=== PATIENT | female | born 1970 | race African-American/Black ===

== ENCOUNTER 2019-10-21 19:06 | Inpatient (IN) ==
[2019-10-21] MEDS ORDERED: ASPIRIN CHEW 81 MG TABLET PO STA (19:28)
[2019-10-21] MEDS ORDERED: SODIUM CHLORIDE 0.9% 1,000 ML IV STA (19:35)
[2019-10-21 19:42] LABS: Basophils % 0.7 % (0.0-0.8); Eosinophils # 0.1 10*3/uL (0.0-0.87); Eosinophils % 1.5 % (0.00-10.9); Hematocrit 43.6 VOL% (35.7-47.0); Hemoglobin 13.7 GM/DL (12.0-16.0); Immature Granulocytes % 0.2 %; Immature Granulocytes Absolute 0.01 #; Lymphocytes # 1.9 10*3/uL (1.4-4.0); Lymphocytes % 35.2 % (21.3-54.2); Mean Corpuscular HGB Conc 31.4 GM/DL (32-36); Mean Corpuscular Volume 79.1 FL (87-102); Monocytes % 10.9 % (1.7-12.7); Neutrophils % 51.5 % (38.7-73.9); Platelet Count 268 T/CUMM (130-400); Red Blood Count 5.51 MC/CUMM (3.8-5.5); Red Cell Distribution Width 16.3 % (9.3-17.3); White Blood Count 5.5 T/CUMM (4-12)
[2019-10-21 20:08] LABS: Albumin 3.7 G/DL (3.4-5.0); Bilirubin,Total 0.4 MG/DL (0.2-1.0); Calcium 9.6 MG/DL (8.5-10.1); Osmolality,Calculated 284.3 MOS/KG (273-304); Thyroid Stimulating Hormone 2.07 uIU/ml (0.358-3.74); Total Protein 8.2 G/DL (6.4-8.3)
[2019-10-21 20:09] LABS: INR 2.1; PT Patient Result 21.3 SECS (9.8-11.9); Partial Thromboplastin Time 56.6 SECS (23.9-33.8)
[2019-10-21] MEDS ORDERED: NICOTINE 21 MG/24 HR PATCH TRANSDERM PRN (20:50)
[2019-10-21] MEDS ORDERED: hydrALAZINE 20 MG/1 ML VIAL IV PRN (20:50)
[2019-10-21] MEDS ORDERED: ONDANSETRON 4 MG/2 ML VIAL IV PRN (20:50)
[2019-10-21] MEDS ORDERED: GLUCAGON 1 MG VIAL IM PRN (20:50)
[2019-10-21] MEDS ORDERED: ACETAMINOPHEN 325 MG TABLET PO PRN (20:50)
[2019-10-21] MEDS ORDERED: DEXTROSE 50% 25 GM/50 ML VIAL IV PRN (20:50)
[2019-10-21] MEDS ORDERED: diphenhydrAMINE CAP 25 MG CAPSULE PO PRN (20:50)
[2019-10-21] MEDS: HEPARIN DRIP 25,000 UNITS/500 ML PREMIX IV SCH (20:50)
[2019-10-21] MEDS ORDERED: ZALEPLON 5 MG CAPSULE PO PRN (20:50)
[2019-10-21] MEDS ORDERED: guaiFENesin/DM ER 600-30 MG TABLET PO PRN (20:50)
[2019-10-21] MEDS: carvediloL 6.25 MG TABLET PO SCH (23:11)
[2019-10-21] MEDS: DOCUSATE SODIUM 100 MG CAPSULE PO SCH (23:11)
[2019-10-21] MEDS: MORPHINE 4 MG/1 ML VIAL IV PRN (23:30)
[2019-10-22] MEDS: MORPHINE 4 MG/1 ML VIAL IV PRN ×4 (02:30→19:00)
[2019-10-22 05:05] LABS: Basophils # 0.1 10*3/uL (0.0-0.2); Basophils % 0.8 % (0.0-0.8); Eosinophils # 0.2 10*3/uL (0.0-0.87); Eosinophils % 2.4 % (0.00-10.9); Hematocrit 43.3 VOL% (35.7-47.0); Hemoglobin 13.2 GM/DL (12.0-16.0); Immature Granulocytes % 0.3 %; Immature Granulocytes Absolute 0.02 #; Lymphocytes # 3.2 10*3/uL (1.4-4.0); Mean Corpuscular HGB Conc 30.5 GM/DL (32-36); Mean Corpuscular Volume 80.9 FL (87-102); Monocytes % 12.4 % (1.7-12.7); Neutrophils % 33.1 % (38.7-73.9); Red Blood Count 5.35 MC/CUMM (3.8-5.5); Red Cell Distribution Width 16.3 % (9.3-17.3); White Blood Count 6.3 T/CUMM (4-12)
[2019-10-22 05:13] LABS: Platelet Count 180 T/CUMM (130-400)
[2019-10-22 05:16] LABS: Calcium 9.1 MG/DL (8.5-10.1); Osmolality,Calculated 282.4 MOS/KG (273-304)
[2019-10-22 05:31] LABS: Atypical Lymphocytes Few; Band Neutrophils 1 % (0-10); Eosinophils 3 % (0-10); Hypochromasia 1+; Lymphocytes 49 % (20-55); Microcytosis 1+; Segmented Neutrophils 37 % (50-85); Total Cells Counted 100
[2019-10-22] MEDS ORDERED: TICAGRELOR 90 MG TABLET PO ONE ×2 (06:30→09:00)
[2019-10-22 06:52] LABS: INR 2.1; PT Patient Result 22.1 SECS (9.8-11.9)
[2019-10-22 06:57] LABS: Partial Thromboplastin Time > 211.8 SECS (23.9-33.8)
[2019-10-22] MEDS: DOCUSATE SODIUM 100 MG CAPSULE PO SCH ×2 (10:01→20:25)
[2019-10-22] MEDS: ASPIRIN EC 81 MG TABLET PO SCH (10:01)
[2019-10-22] MEDS: SPIRONOLACTONE 50 MG TABLET PO SCH (10:01)
[2019-10-22] MEDS: METOPROLOL TARTRATE 50 MG TABLET PO SCH ×2 (10:02→20:27)
[2019-10-22] MEDS: GABAPENTIN 300 MG CAPSULE PO SCH ×3 (10:02→20:24)
[2019-10-22] MEDS: PANTOPRAZOLE 40 MG TABLET PO SCH (10:02)
[2019-10-22] MEDS: carvediloL 6.25 MG TABLET PO SCH (10:08)
[2019-10-22 11:36] LABS: CKMB % 10.9 %
[2019-10-22 11:38] LABS: Troponin I 12.5 NG/ML (0.00-0.045)
[2019-10-22] MEDS: NITROGLYCERIN SL 0.4 MG TABLET SL PRN ×4 (11:52→19:06)
[2019-10-22] MEDS ORDERED: KETOROLAC 15 MG/1 ML VIAL IV ONE (12:05)
[2019-10-22] MEDS: HEPARIN DRIP 25,000 UNITS/500 ML PREMIX IV SCH ×2 (12:26→21:15)
[2019-10-22] MEDS: NITROGLYCERIN 2% OINT 1 INCH/GM PACK TOP SCH ×2 (12:42→17:55)
[2019-10-22] MEDS: amLODIPine 5 MG TABLET PO SCH (12:45)
[2019-10-22] MEDS: cloNIDine 0.1 MG TABLET PO PRN ×2 (13:48→18:13)
[2019-10-22 15:16] LABS: CKMB % 10.7 %; Troponin I 11.5 NG/ML (0.00-0.045)
[2019-10-22] MEDS ORDERED: HEPARIN/NACL 0.9% 2 UNITS/ML 1,000 ML IV ONE (15:16)
[2019-10-22] MEDS ORDERED: LIDOCAINE 1%/EPI INJ 20 ML VIAL ONE (15:16)
[2019-10-22] MEDS ORDERED: MIDAZOLAM 2 MG/2 ML VIAL ONE (15:21)
[2019-10-22] MEDS ORDERED: fentaNYL 100 MCG/2 ML VIAL ONE (15:21)
[2019-10-22] MEDS ORDERED: ceFAZolin 1,000 MG VIAL ONE (16:16)
[2019-10-22] MEDS ORDERED: cloNIDine 0.1 MG TABLET ONE (16:16)
[2019-10-22] MEDS ORDERED: fentaNYL 100 MCG/2 ML VIAL IV PRN (16:22)
[2019-10-22] MEDS ORDERED: SODIUM CHLORIDE 0.45% 1,000 ML IV SCH (16:30)
[2019-10-22] MEDS: hydrOXYzine HCL 25 MG TABLET PO SCH ×2 (17:02→20:23)
[2019-10-22] MEDS: DICYCLOMINE 10 MG CAPSULE PO SCH ×2 (17:02→20:24)
[2019-10-22] MEDS: CYCLOBENZAPRINE 10 MG TABLET PO SCH ×2 (17:02→20:23)
[2019-10-22 17:30] LABS: CKMB % 9.6 %; Troponin I 9.06 NG/ML (0.00-0.045)
[2019-10-22] MEDS: TICAGRELOR 90 MG TABLET PO SCH ×2 (17:50→20:24)
[2019-10-22] MEDS ORDERED: ALUM/MAG/SIMETH/LIDO VISC 1:1 30 ML BOTTLE PO ONE (19:39)
[2019-10-22] MEDS: ATORVASTATIN 20 MG TABLET PO SCH (20:23)
[2019-10-22] MEDS: HYDROmorphone 2 MG/1 ML VIAL IV PRN (20:27)
[2019-10-23] MEDS ORDERED: ACETAMINOPHEN 500 MG TABLET PO SCH
[2019-10-23] MEDS: NITROGLYCERIN 2% OINT 1 INCH/GM PACK TOP SCH ×2 (00:05→06:18)
[2019-10-23] MEDS: ACETAMINOPHEN 500 MG TABLET PO PRN ×2 (00:05→06:18)
[2019-10-23] MEDS: MORPHINE 4 MG/1 ML VIAL IV PRN (02:42)
[2019-10-23] MEDS: cloNIDine 0.1 MG TABLET PO PRN (04:45)
[2019-10-23 05:07] LABS: Calcium 9.1 MG/DL (8.5-10.1); Osmolality,Calculated 274.8 MOS/KG (273-304)
[2019-10-23 06:39] LABS: Basophils % 0.3 % (0.0-0.8); Eosinophils % 0.6 % (0.00-10.9); Hematocrit 44.1 VOL% (35.7-47.0); Immature Granulocytes % 0.3 %; Immature Granulocytes Absolute 0.02 #; Lymphocytes # 1.2 10*3/uL (1.4-4.0); Lymphocytes % 16.7 % (21.3-54.2); Mean Corpuscular HGB Conc 31.7 GM/DL (32-36); Mean Corpuscular Volume 78.6 FL (87-102); Monocytes % 12.3 % (1.7-12.7); Neutrophils % 69.8 % (38.7-73.9); Platelet Count 170 T/CUMM (130-400); Red Blood Count 5.61 MC/CUMM (3.8-5.5); Red Cell Distribution Width 16.3 % (9.3-17.3)
[2019-10-23] MEDS: GABAPENTIN 300 MG CAPSULE PO SCH ×3 (08:43→21:13)
[2019-10-23] MEDS: MONTELUKAST 10 MG TABLET PO SCH (08:43)
[2019-10-23] MEDS: SPIRONOLACTONE 50 MG TABLET PO SCH (08:43)
[2019-10-23] MEDS: PANTOPRAZOLE 40 MG TABLET PO SCH (08:43)
[2019-10-23] MEDS: predniSONE 10 MG TABLET PO SCH (08:43)
[2019-10-23] MEDS: amLODIPine 5 MG TABLET PO SCH (08:43)
[2019-10-23] MEDS: CYCLOBENZAPRINE 10 MG TABLET PO SCH ×3 (08:43→21:14)
[2019-10-23] MEDS: CETIRIZINE 10 MG TABLET PO SCH (08:43)
[2019-10-23] MEDS: ASPIRIN EC 81 MG TABLET PO SCH (08:43)
[2019-10-23] MEDS: VENLAFAXINE XR 75 MG CAPSULE PO SCH (08:44)
[2019-10-23] MEDS: hydrOXYzine HCL 25 MG TABLET PO SCH ×3 (08:44→21:13)
[2019-10-23] MEDS: METOPROLOL TARTRATE 50 MG TABLET PO SCH ×2 (08:44→21:21)
[2019-10-23] MEDS: TOPIRAMATE 100 MG TABLET PO SCH (08:44)
[2019-10-23] MEDS: DOCUSATE SODIUM 100 MG CAPSULE PO SCH ×2 (08:44→21:13)
[2019-10-23] MEDS: TICAGRELOR 90 MG TABLET PO SCH ×2 (08:44→21:13)
[2019-10-23] MEDS: DICYCLOMINE 10 MG CAPSULE PO SCH ×3 (08:47→21:13)
[2019-10-23] MEDS ORDERED: DOCUSATE SODIUM 100 MG CAPSULE PO SCH (09:00)
[2019-10-23] MEDS ORDERED: PANTOPRAZOLE 40 MG TABLET PO SCH (09:00)
[2019-10-23] MEDS: FLUTICASONE 50 MCG NASAL SPRAY 16 GM BOTTLE BOTH NARES SCH (09:35)
[2019-10-23] MEDS: PROMETHAZINE 25 MG TABLET PO PRN ×2 (11:05→17:36)
[2019-10-23] MEDS: HYDROmorphone 2 MG/1 ML VIAL IV PRN (13:13)
[2019-10-23] MEDS: HEPARIN DRIP 25,000 UNITS/500 ML PREMIX IV SCH ×2 (15:13→21:12)
[2019-10-23] MEDS: ATORVASTATIN 20 MG TABLET PO SCH (21:13)
[2019-10-24] MEDS: HYDROmorphone 2 MG/1 ML VIAL IV PRN ×2 (00:07→21:00)
[2019-10-24 08:03] LABS: Basophils % 0.4 % (0.0-0.8); Eosinophils # 0.1 10*3/uL (0.0-0.87); Eosinophils % 1.3 % (0.00-10.9); Hematocrit 44.1 VOL% (35.7-47.0); Immature Granulocytes % 0.4 %; Immature Granulocytes Absolute 0.03 #; Lymphocytes % 29.4 % (21.3-54.2); Mean Corpuscular HGB Conc 31.7 GM/DL (32-36); Mean Corpuscular Volume 79.3 FL (87-102); Monocytes % 10.3 % (1.7-12.7); Neutrophils % 58.2 % (38.7-73.9); Platelet Count 177 T/CUMM (130-400); Red Blood Count 5.56 MC/CUMM (3.8-5.5); Red Cell Distribution Width 16.3 % (9.3-17.3); White Blood Count 6.9 T/CUMM (4-12)
[2019-10-24 08:12] LABS: Albumin 3.3 G/DL (3.4-5.0); Bilirubin,Total 0.4 MG/DL (0.2-1.0); Calcium 9.4 MG/DL (8.5-10.1); Osmolality,Calculated 280.5 MOS/KG (273-304); Total Protein 8.3 G/DL (6.4-8.3)
[2019-10-24 08:40] LABS: Hypochromasia Slight; Platelet Estimate Adequate
[2019-10-24 08:41] LABS: Microcytosis Slight
[2019-10-24] MEDS: VENLAFAXINE XR 75 MG CAPSULE PO SCH (09:22)
[2019-10-24] MEDS: GABAPENTIN 300 MG CAPSULE PO SCH ×3 (09:22→20:57)
[2019-10-24] MEDS: CETIRIZINE 10 MG TABLET PO SCH (09:23)
[2019-10-24] MEDS: DOCUSATE SODIUM 100 MG CAPSULE PO SCH ×2 (09:23→20:59)
[2019-10-24] MEDS: amLODIPine 5 MG TABLET PO SCH (09:23)
[2019-10-24] MEDS: hydrOXYzine HCL 25 MG TABLET PO SCH ×3 (09:24→20:59)
[2019-10-24] MEDS: METOPROLOL TARTRATE 50 MG TABLET PO SCH ×2 (09:24→21:01)
[2019-10-24] MEDS: predniSONE 10 MG TABLET PO SCH (09:24)
[2019-10-24] MEDS: SPIRONOLACTONE 50 MG TABLET PO SCH (09:24)
[2019-10-24] MEDS: MONTELUKAST 10 MG TABLET PO SCH (09:24)
[2019-10-24] MEDS: ASPIRIN EC 81 MG TABLET PO SCH (09:24)
[2019-10-24] MEDS: DICYCLOMINE 10 MG CAPSULE PO SCH ×3 (09:24→20:59)
[2019-10-24] MEDS: CYCLOBENZAPRINE 10 MG TABLET PO SCH ×3 (09:24→20:59)
[2019-10-24] MEDS: TOPIRAMATE 100 MG TABLET PO SCH (09:24)
[2019-10-24] MEDS: TICAGRELOR 90 MG TABLET PO SCH ×2 (09:24→20:58)
[2019-10-24] MEDS: FLUTICASONE 50 MCG NASAL SPRAY 16 GM BOTTLE BOTH NARES SCH (09:25)
[2019-10-24] MEDS: PANTOPRAZOLE 40 MG TABLET PO SCH (09:25)
[2019-10-24] MEDS: HEPARIN DRIP 25,000 UNITS/500 ML PREMIX IV SCH (14:25)
[2019-10-24 17:05] LABS: INR 1.1; PT Patient Result 11.9 SECS (9.8-11.9)
[2019-10-24] MEDS ORDERED: WARFARIN 5 MG TABLET PO SCH (18:00)
[2019-10-24] MEDS: ATORVASTATIN 20 MG TABLET PO SCH (20:59)
[2019-10-25] MEDS: HEPARIN DRIP 25,000 UNITS/500 ML PREMIX IV SCH (00:26)
[2019-10-25] MEDS: MORPHINE 4 MG/1 ML VIAL IV PRN (03:24)
[2019-10-25 06:06] LABS: Basophils % 0.5 % (0.0-0.8); Eosinophils # 0.1 10*3/uL (0.0-0.87); Eosinophils % 1.6 % (0.00-10.9); Hematocrit 46.8 VOL% (35.7-47.0); Hemoglobin 14.8 GM/DL (12.0-16.0); Immature Granulocytes % 0.4 %; Immature Granulocytes Absolute 0.03 #; Lymphocytes # 3.1 10*3/uL (1.4-4.0); Lymphocytes % 39.2 % (21.3-54.2); Mean Corpuscular HGB Conc 31.6 GM/DL (32-36); Mean Corpuscular Volume 78.7 FL (87-102); Neutrophils % 48.3 % (38.7-73.9); Platelet Count 190 T/CUMM (130-400); Red Blood Count 5.95 MC/CUMM (3.8-5.5); White Blood Count 7.9 T/CUMM (4-12)
[2019-10-25 06:19] LABS: PT Patient Result 10.7 SECS (9.8-11.9)
[2019-10-25 06:20] LABS: Calcium 9.4 MG/DL (8.5-10.1); Osmolality,Calculated 276.8 MOS/KG (273-304)
[2019-10-25 06:26] LABS: Hypochromasia Slight; Platelet Estimate Adequate
[2019-10-25 06:27] LABS: Microcytosis Slight
[2019-10-25] MEDS: VENLAFAXINE XR 75 MG CAPSULE PO SCH (09:03)
[2019-10-25] MEDS: PANTOPRAZOLE 40 MG TABLET PO SCH (09:03)
[2019-10-25] MEDS: TICAGRELOR 90 MG TABLET PO SCH (09:03)
[2019-10-25] MEDS: amLODIPine 5 MG TABLET PO SCH (09:03)
[2019-10-25] MEDS: DICYCLOMINE 10 MG CAPSULE PO SCH ×2 (09:03→14:31)
[2019-10-25] MEDS: DOCUSATE SODIUM 100 MG CAPSULE PO SCH (09:04)
[2019-10-25] MEDS: hydrOXYzine HCL 25 MG TABLET PO SCH ×2 (09:04→14:31)
[2019-10-25] MEDS: TOPIRAMATE 100 MG TABLET PO SCH (09:04)
[2019-10-25] MEDS: predniSONE 10 MG TABLET PO SCH (09:04)
[2019-10-25] MEDS: CETIRIZINE 10 MG TABLET PO SCH (09:04)
[2019-10-25] MEDS: METOPROLOL TARTRATE 50 MG TABLET PO SCH (09:04)
[2019-10-25] MEDS: GABAPENTIN 300 MG CAPSULE PO SCH ×2 (09:05→14:31)
[2019-10-25] MEDS: FLUTICASONE 50 MCG NASAL SPRAY 16 GM BOTTLE BOTH NARES SCH (09:05)
[2019-10-25] MEDS: CYCLOBENZAPRINE 10 MG TABLET PO SCH ×2 (09:05→14:31)
[2019-10-25] MEDS: MONTELUKAST 10 MG TABLET PO SCH (09:05)
[2019-10-25] MEDS: ASPIRIN EC 81 MG TABLET PO SCH (09:06)
[2019-10-25 11:34] VITALS: BP 107/73
== END 2019-10-25 15:07 | disposition home or self-care (01) | DRG 281 ==
LOC: N.ED 19:06 → SUATTDRO 20:50 → N.EDINP 20:50 → N.TELES 21:16 → N.ICU 10-22 16:24 → N.TELEN 10-23 11:10
PROVIDERS: ADMIT Internal Medicine Geriatric Medicine; ATTEND Internal Medicine
PROC: CLCCHCL (ICD-10-PCS; 2019-10-22 16:00)

== ENCOUNTER 2020-07-21 04:47 | Observation (INO) ==
[2020-07-21 05:06] LABS: Basophils # 0.1 10*3/uL (0.0-0.2); Basophils % 0.7 % (0.0-0.8); Eosinophils # 0.1 10*3/uL (0.0-0.87); Eosinophils % 1.2 % (0.00-10.9); Hematocrit 44.9 VOL% (35.7-47.0); Hemoglobin 13.8 GM/DL (12.0-16.0); Immature Granulocytes % 0.4 %; Immature Granulocytes Absolute 0.03 #; Lymphocytes # 3.4 10*3/uL (1.4-4.0); Lymphocytes % 39.6 % (21.3-54.2); Mean Corpuscular HGB Conc 30.7 GM/DL (32-36); Monocytes % 11.4 % (1.7-12.7); Neutrophils % 46.7 % (38.7-73.9); Platelet Count 150 T/CUMM (130-400); Red Blood Count 5.54 MC/CUMM (3.8-5.5); Red Cell Distribution Width 18.4 % (9.3-17.3); White Blood Count 8.5 T/CUMM (4-12)
[2020-07-21 05:15] LABS: PT Patient Result 10.9 SECS (10.5-12.0); Partial Thromboplastin Time 29.7 SECS (23.9-33.8)
[2020-07-21 05:27] LABS: Anisocytosis 1+; Band Neutrophils 3 % (0-10); Eosinophils 4 % (0-10); Lymphocytes 38 % (20-55); Ovalocytes Few; Platelet Estimate Normal; Segmented Neutrophils 45 % (50-85); Total Cells Counted 100
[2020-07-21 05:41] LABS: Calcium 9.3 MG/DL (8.5-10.1); Potassium 4.9 MMOL/L (3.5-5.1)
[2020-07-21] MEDS ORDERED: NITROGLYCERIN SL 0.4 MG TABLET SL PRN (06:39)
[2020-07-21 06:46] LABS: Bilirubin,Urine Negative (Negative); Blood, Urine Negative (Negative); Glucose,Urine (UA) Negative (Negative); Ketones,Urine Negative (Negative); Nitrite,Urine Negative (Negative); Protein,Urine Negative; RBC,Urine 3 /HPF (0-4); Squamous Epithelial Cell,Urine Occasional /HPF (0-10); Urine Appearance CLEAR (Clear); Urine Color Yellow (Yellow); Urine Specific Gravity 1.017 (1.001-1.035)
[2020-07-21] MEDS ORDERED: ONDANSETRON 4 MG/2 ML VIAL IV PRN (06:59)
[2020-07-21] MEDS ORDERED: BISACODYL 5 MG TABLET PO PRN (06:59)
[2020-07-21] MEDS ORDERED: DEXTROSE 50% 25 GM/50 ML VIAL IV PRN (06:59)
[2020-07-21] MEDS ORDERED: ACETAMINOPHEN 325 MG TABLET PO PRN (06:59)
[2020-07-21] MEDS ORDERED: GLUCAGON 1 MG VIAL IM PRN (06:59)
[2020-07-21] MEDS ORDERED: ENOXAPARIN 30 MG/0.3 ML SYRINGE SUBCUT SCH (07:00)
[2020-07-21] MEDS ORDERED: CYCLOBENZAPRINE 10 MG TABLET PO PRN (07:02)
[2020-07-21] MEDS ORDERED: ALBUTEROL 2.5 MG/3 ML NEB RESP TX PRN (07:02)
[2020-07-21] MEDS ORDERED: LEVOTHYROXINE 25 MCG TABLET PO SCH (07:30)
[2020-07-21] MEDS ORDERED: PANTOPRAZOLE 40 MG TABLET PO SCH (09:00)
[2020-07-21] MEDS ORDERED: ATORVASTATIN 20 MG TABLET PO SCH (09:00)
[2020-07-21] MEDS ORDERED: FLUTICASONE 50 MCG NASAL SPRAY 16 GM BOTTLE BOTH NARES SCH (09:00)
[2020-07-21] MEDS ORDERED: VENLAFAXINE XR 75 MG CAPSULE PO SCH (09:00)
[2020-07-21] MEDS ORDERED: ASPIRIN EC 325 MG TABLET PO SCH (09:00)
[2020-07-21] MEDS ORDERED: METOPROLOL TARTRATE 25 MG TABLET PO SCH (09:00)
[2020-07-21] MEDS ORDERED: MONTELUKAST 10 MG TABLET PO SCH (09:00)
[2020-07-21] MEDS: APIXABAN 5 MG TABLET PO SCH ×2 (09:08→20:47)
[2020-07-21] MEDS: GABAPENTIN 300 MG CAPSULE PO SCH ×3 (09:08→20:46)
[2020-07-21] MEDS: INSULIN LISPRO 100 UNIT/ML SUBCUT SCH ×4 (09:13→20:46)
[2020-07-21] MEDS: MORPHINE 4 MG/1 ML VIAL IV PRN ×2 (10:55→20:47)
[2020-07-21 16:21] LABS: Barbiturates Screen,Urine Negative (Negative); Benzodiazepines Screen,Urine Negative (Negative); Cannabinoid Screen,Urine Negative (Negative); Opiate Screen,Urine Positive (Negative); Phencyclidine Screen,Urine Negative (Negative)
[2020-07-21 20:10] VITALS: BP 121/79
[2020-07-21] MEDS ORDERED: hydrOXYzine HCL 25 MG TABLET PO SCH (21:00)
== END 2020-07-21 20:56 | disposition hospice, home (50) ==
LOC: EDUNIT# → EDBD → N.ED 04:47 → N.EDINP 04:47 → SUATTDRO 06:59 → N.EDINP 07:42 → N.TELES 08:15
PROVIDERS: ADMIT Hospitalist; ATTEND Internal Medicine

== ENCOUNTER 2021-10-06 06:49 | Inpatient (IN) ==
[2021-10-06 07:18] LABS: Basophils # 0.1 10*3/uL (0.0-0.2); Basophils % 0.4 % (0.0-0.8); Eosinophils % 0.1 % (0.00-10.9); Hematocrit 47.2 VOL% (35.7-47.0); Hemoglobin 14.8 GM/DL (12.0-16.0); Immature Granulocytes % 0.8 %; Lymphocytes # 1.4 10*3/uL (1.4-4.0); Lymphocytes % 10.6 % (21.3-54.2); Mean Corpuscular HGB Conc 31.4 GM/DL (32-36); Mean Corpuscular Volume 71.8 FL (87-102); Monocytes % 7.9 % (1.7-12.7); NRBC # 0.02 10*3/uL; Neutrophils % 80.2 % (38.7-73.9); Platelet Count 209 T/CUMM (130-400); Red Blood Count 6.57 MC/CUMM (3.8-5.5); Red Cell Distribution Width 22.3 % (9.3-17.3); White Blood Count 13.2 T/CUMM (4-12)
[2021-10-06 07:43] LABS: Albumin 3.8 G/DL (3.4-5.0); Bilirubin,Total 1.1 MG/DL (0.20-1.00); Osmolality,Calculated 289.3 MOS/KG (273-304); Potassium 4.1 MMOL/L (3.5-5.1); Total Protein 7.8 G/DL (6.4-8.2)
[2021-10-06] MEDS ORDERED: NITROGLYCERIN SL 0.4 MG TABLET SL ONE (08:48)
[2021-10-06] MEDS ORDERED: MORPHINE 2 MG/1 ML SYRINGE IV STA (09:05)
[2021-10-06] MEDS ORDERED: ONDANSETRON 4 MG/2 ML VIAL IV STA (09:05)
[2021-10-06] MEDS ORDERED: ONDANSETRON 4 MG/2 ML VIAL ONE (09:06)
[2021-10-06] MEDS ORDERED: MORPHINE 2 MG/1 ML SYRINGE ONE (09:06)
[2021-10-06] MEDS ORDERED: NITROGLYCERIN SL 0.4 MG TABLET SL STA (09:27)
[2021-10-06] MEDS ORDERED: NITROGLYCERIN SL 0.4 MG TABLET SL PRN (10:34)
[2021-10-06] MEDS ORDERED: DEXTROSE 50% 25 GM/50 ML VIAL IV PRN (10:34)
[2021-10-06] MEDS ORDERED: GLUCAGON 1 MG VIAL IM PRN (10:34)
[2021-10-06] MEDS ORDERED: DEXTROSE 10% 250 ML BAG IV PRN (10:40)
[2021-10-06] MEDS: INSULIN REGULAR 100 UNIT/ML SUBCUT SCH ×3 (12:47→20:58)
[2021-10-06] MEDS: PREGABALIN 75 MG CAPSULE PO SCH ×2 (14:26→20:58)
[2021-10-06] MEDS ORDERED: METOPROLOL TARTRATE 5 MG/5 ML VIAL IV ONE (15:27)
[2021-10-06] MEDS: ONDANSETRON 4 MG/2 ML VIAL IV PRN (15:52)
[2021-10-06] MEDS: MORPHINE 2 MG/1 ML SYRINGE IV PRN (16:19)
[2021-10-06] MEDS ORDERED: DIGOXIN 0.125 MG TABLET PO ONE (17:31)
[2021-10-06] MEDS: METOPROLOL TARTRATE 5 MG/5 ML VIAL IV SCH (17:59)
[2021-10-06] MEDS: ATORVASTATIN 20 MG TABLET PO SCH (20:58)
[2021-10-06] MEDS: BUDESONIDE/FORMOTEROL 160-4.5 INHALER 6 GM INH SCH (20:58)
[2021-10-06] MEDS: RANOLAZINE 500 MG TABLET PO SCH (20:58)
[2021-10-06] MEDS: METOPROLOL SUCCINATE XL 50 MG TABLET PO SCH (20:58)
[2021-10-06] MEDS: APIXABAN 5 MG TABLET PO SCH (20:58)
[2021-10-06] MEDS: tiZANidine 4 MG TABLET PO SCH (20:59)
[2021-10-06] MEDS ORDERED: ENOXAPARIN 40 MG/0.4 ML SYRINGE SUBCUT SCH (21:00)
[2021-10-07] MEDS: METOPROLOL TARTRATE 5 MG/5 ML VIAL IV SCH ×4 (01:45→17:33)
[2021-10-07] MEDS: MORPHINE 2 MG/1 ML SYRINGE IV PRN (02:07)
[2021-10-07] MEDS: ONDANSETRON 4 MG/2 ML VIAL IV PRN (02:08)
[2021-10-07 04:34] LABS: Bacteria,Urine Many /HPF (Few); Mucus,Urine Few /LPF (Occasional); RBC,Urine 2379 /HPF (0-4); Squamous Epithelial Cell,Urine Moderate /HPF (0-10)
[2021-10-07 04:35] LABS: Bilirubin,Urine Small mg/dL (Negative); Blood, Urine Large mg/dL (Negative); Glucose,Urine (UA) 250 mg/dL (Negative); Ketones,Urine Trace mg/dL (Negative); Nitrite,Urine Positive (Negative); Protein,Urine >=300 mg/dL (Negative); Urine Appearance Turbid (Clear); Urine Color Brown (Yellow); Urine Specific Gravity > 1.030 (1.001-1.035); Urine Urobilinogen 0.2 eU/dL (<2.0)
[2021-10-07 04:48] LABS: Basophils % 0.2 % (0.0-0.8); Eosinophils # 0.1 10*3/uL (0.0-0.87); Eosinophils % 0.7 % (0.00-10.9); Hematocrit 46.4 VOL% (35.7-47.0); Hemoglobin 14.2 GM/DL (12.0-16.0); Immature Granulocytes % 0.5 %; Immature Granulocytes Absolute 0.06 #; Lymphocytes # 2.5 10*3/uL (1.4-4.0); Lymphocytes % 19.8 % (21.3-54.2); Mean Corpuscular HGB Conc 30.6 GM/DL (32-36); Mean Corpuscular Volume 73.1 FL (87-102); Monocytes # 1.8 10*3/uL (0.11-0.8); Monocytes % 14.3 % (1.7-12.7); Neutrophils % 64.5 % (38.7-73.9); Platelet Count 191 T/CUMM (130-400); Red Blood Count 6.35 MC/CUMM (3.8-5.5); Red Cell Distribution Width 22.2 % (9.3-17.3); White Blood Count 12.6 T/CUMM (4-12)
[2021-10-07 05:05] LABS: Band Neutrophils 6 % (0-10); Lymphocytes 21 % (20-55); Platelet Estimate Adequate; Total Cells Counted 100
[2021-10-07 05:21] LABS: Albumin 3.5 G/DL (3.4-5.0); Bilirubin,Total 1.2 MG/DL (0.20-1.00); Calcium 9.2 MG/DL (8.5-10.1); Osmolality,Calculated 285.4 MOS/KG (273-304); Potassium 3.9 MMOL/L (3.5-5.1); Risk Ratio 2.24; Total Protein 8.2 G/DL (6.4-8.2)
[2021-10-07] MEDS: LEVOTHYROXINE 75 MCG TABLET PO SCH (06:25)
[2021-10-07] MEDS: INSULIN REGULAR 100 UNIT/ML SUBCUT SCH ×4 (07:49→22:19)
[2021-10-07] MEDS: SODIUM CHLORIDE 0.9% 1,000 ML IV SCH (08:01)
[2021-10-07] MEDS: RANOLAZINE 500 MG TABLET PO SCH ×2 (09:32→20:57)
[2021-10-07] MEDS: APIXABAN 5 MG TABLET PO SCH ×2 (09:32→20:56)
[2021-10-07] MEDS: cefTRIAXone 1,000 MG in SODIUM CHLORIDE 0.9% 100 ML IV SCH (09:32)
[2021-10-07] MEDS: PREGABALIN 75 MG CAPSULE PO SCH ×3 (09:32→20:57)
[2021-10-07] MEDS: OMEGA 3 ACID ETHYL ESTERS 1 GM CAPSULE PO SCH (09:32)
[2021-10-07] MEDS: CLOPIDOGREL 75 MG TABLET PO SCH (09:32)
[2021-10-07] MEDS: DIGOXIN 0.125 MG TABLET PO SCH (09:32)
[2021-10-07] MEDS: PANTOPRAZOLE 40 MG TABLET PO SCH (09:32)
[2021-10-07] MEDS: amLODIPine 5 MG TABLET PO SCH (09:32)
[2021-10-07] MEDS: allopurinoL 100 MG TABLET PO SCH (09:33)
[2021-10-07] MEDS: BUDESONIDE/FORMOTEROL 160-4.5 INHALER 6 GM INH SCH ×2 (09:33→22:19)
[2021-10-07] MEDS: ASCORBIC ACID 500 MG TABLET PO SCH (09:33)
[2021-10-07] MEDS: METOPROLOL SUCCINATE XL 50 MG TABLET PO SCH ×2 (09:33→22:19)
[2021-10-07] MEDS: tiZANidine 4 MG TABLET PO SCH ×2 (09:33→20:57)
[2021-10-07] MEDS: CHOLECALCIFEROL 1,000 UNIT TABLET PO SCH (09:33)
[2021-10-07] MEDS: MONTELUKAST 10 MG TABLET PO SCH (09:33)
[2021-10-07] MEDS ORDERED: LOPERAMIDE 2 MG CAPSULE PO PRN (15:57)
[2021-10-07] MEDS ORDERED: LOPERAMIDE 2 MG CAPSULE PO ONE (15:57)
[2021-10-07] MEDS: ATORVASTATIN 20 MG TABLET PO SCH (20:56)
[2021-10-08] MEDS: METOPROLOL TARTRATE 5 MG/5 ML VIAL IV SCH ×2 (00:05→05:20)
[2021-10-08] MEDS: LEVOTHYROXINE 75 MCG TABLET PO SCH (05:54)
[2021-10-08] MEDS: INSULIN REGULAR 100 UNIT/ML SUBCUT SCH ×4 (08:12→20:51)
[2021-10-08 08:41] LABS: Basophils % 0.2 % (0.0-0.8); Eosinophils # 0.1 10*3/uL (0.0-0.87); Eosinophils % 0.9 % (0.00-10.9); Hematocrit 43.3 VOL% (35.7-47.0); Hemoglobin 13.6 GM/DL (12.0-16.0); Immature Granulocytes % 0.6 %; Immature Granulocytes Absolute 0.05 #; Lymphocytes # 1.3 10*3/uL (1.4-4.0); Lymphocytes % 14.6 % (21.3-54.2); Mean Corpuscular HGB Conc 31.4 GM/DL (32-36); Mean Corpuscular Volume 71.5 FL (87-102); Monocytes # 1.1 10*3/uL (0.11-0.8); Monocytes % 13.2 % (1.7-12.7); Neutrophils % 70.5 % (38.7-73.9); Red Blood Count 6.06 MC/CUMM (3.8-5.5); White Blood Count 8.6 T/CUMM (4-12)
[2021-10-08 08:43] LABS: Platelet Count 160 T/CUMM (130-400)
[2021-10-08 08:55] LABS: Calcium 9.7 MG/DL (8.5-10.1); Osmolality,Calculated 273.1 MOS/KG (273-304); Potassium 3.4 MMOL/L (3.5-5.1)
[2021-10-08] MEDS: cefTRIAXone 1,000 MG in SODIUM CHLORIDE 0.9% 100 ML IV SCH (09:13)
[2021-10-08] MEDS: METOPROLOL SUCCINATE XL 50 MG TABLET PO SCH ×2 (09:15→20:50)
[2021-10-08] MEDS: MONTELUKAST 10 MG TABLET PO SCH (09:15)
[2021-10-08] MEDS: PREGABALIN 75 MG CAPSULE PO SCH ×3 (09:15→20:51)
[2021-10-08] MEDS: PANTOPRAZOLE 40 MG TABLET PO SCH (09:15)
[2021-10-08] MEDS: tiZANidine 4 MG TABLET PO SCH (09:16)
[2021-10-08] MEDS: allopurinoL 100 MG TABLET PO SCH (09:16)
[2021-10-08] MEDS: OMEGA 3 ACID ETHYL ESTERS 1 GM CAPSULE PO SCH (09:16)
[2021-10-08] MEDS: RANOLAZINE 500 MG TABLET PO SCH ×2 (09:16→20:51)
[2021-10-08] MEDS: amLODIPine 5 MG TABLET PO SCH (09:16)
[2021-10-08] MEDS: DIGOXIN 0.125 MG TABLET PO SCH (09:17)
[2021-10-08] MEDS: CLOPIDOGREL 75 MG TABLET PO SCH (09:17)
[2021-10-08] MEDS: APIXABAN 5 MG TABLET PO SCH ×2 (09:17→20:51)
[2021-10-08] MEDS: CHOLECALCIFEROL 1,000 UNIT TABLET PO SCH (09:17)
[2021-10-08] MEDS: ASCORBIC ACID 500 MG TABLET PO SCH (09:17)
[2021-10-08] MEDS: BUDESONIDE/FORMOTEROL 160-4.5 INHALER 6 GM INH SCH ×2 (09:19→20:52)
[2021-10-08] MEDS ORDERED: LACTATED RINGERS 1,000 ML IV SCH (09:30)
[2021-10-08] MEDS ORDERED: ALBUTEROL 1.25 MG/3 ML NEB RESP TX PRN (10:32)
[2021-10-08] MEDS ORDERED: MAGNESIUM SULF RIDER 4 GM/100 ML PREMIX IV PRN (10:34)
[2021-10-08] MEDS ORDERED: MAGNESIUM SULF RIDER 2 GM/50 ML PREMIX IV PRN (10:34)
[2021-10-08] MEDS: SODIUM CHLORIDE 0.9% 1,000 ML IV SCH (12:14)
[2021-10-08] MEDS: tiZANidine 4 MG TABLET PO PRN (17:29)
[2021-10-08] MEDS: ATORVASTATIN 20 MG TABLET PO SCH (20:51)
[2021-10-09 05:31] LABS: Basophils % 0.3 % (0.0-0.8); Eosinophils # 0.1 10*3/uL (0.0-0.87); Eosinophils % 0.8 % (0.00-10.9); Hematocrit 38.1 VOL% (35.7-47.0); Hemoglobin 11.9 GM/DL (12.0-16.0); Immature Granulocytes % 0.5 %; Immature Granulocytes Absolute 0.04 #; Lymphocytes # 1.5 10*3/uL (1.4-4.0); Lymphocytes % 21.1 % (21.3-54.2); Mean Corpuscular HGB Conc 31.2 GM/DL (32-36); Monocytes # 1.3 10*3/uL (0.11-0.8); Monocytes % 18.2 % (1.7-12.7); Neutrophils % 59.1 % (38.7-73.9); Platelet Count 164 T/CUMM (130-400); Red Blood Count 5.29 MC/CUMM (3.8-5.5); Red Cell Distribution Width 21.3 % (9.3-17.3); White Blood Count 7.3 T/CUMM (4-12)
[2021-10-09 05:48] LABS: Calcium 9.2 MG/DL (8.5-10.1); Osmolality,Calculated 284.3 MOS/KG (273-304); Potassium 3.4 MMOL/L (3.5-5.1)
[2021-10-09] MEDS: LEVOTHYROXINE 75 MCG TABLET PO SCH (05:53)
[2021-10-09 05:55] LABS: Band Neutrophils 1 % (0-10); Eosinophils 2 % (0-10); Lymphocytes 26 % (20-55); Total Cells Counted 100
[2021-10-09 05:56] LABS: Anisocytosis 1+; Hypochromia 1+; Microcytosis 1+; Ovalocytes Few; Target Cells Slight
[2021-10-09] MEDS ORDERED: cefTRIAXone 2,000 MG in SODIUM CHLORIDE 0.9% 100 ML IV SCH (08:00)
[2021-10-09] MEDS: INSULIN REGULAR 100 UNIT/ML SUBCUT SCH ×2 (08:32→13:22)
[2021-10-09] MEDS ORDERED: VENLAFAXINE XR 75 MG CAPSULE PO SCH (09:00)
[2021-10-09] MEDS: RANOLAZINE 500 MG TABLET PO SCH (10:01)
[2021-10-09] MEDS: tiZANidine 4 MG TABLET PO PRN (10:02)
[2021-10-09] MEDS: ASCORBIC ACID 500 MG TABLET PO SCH (10:02)
[2021-10-09] MEDS: DIGOXIN 0.125 MG TABLET PO SCH (10:02)
[2021-10-09] MEDS: allopurinoL 100 MG TABLET PO SCH (10:02)
[2021-10-09] MEDS: CHOLECALCIFEROL 1,000 UNIT TABLET PO SCH (10:02)
[2021-10-09] MEDS: POTASSIUM CHLORIDE 20 MEQ TABLET PO PRN ×2 (10:03→11:44)
[2021-10-09] MEDS: METOPROLOL SUCCINATE XL 50 MG TABLET PO SCH (10:03)
[2021-10-09] MEDS: APIXABAN 5 MG TABLET PO SCH (10:03)
[2021-10-09] MEDS: PREGABALIN 75 MG CAPSULE PO SCH (10:03)
[2021-10-09] MEDS: OMEGA 3 ACID ETHYL ESTERS 1 GM CAPSULE PO SCH (10:04)
[2021-10-09] MEDS: MONTELUKAST 10 MG TABLET PO SCH (10:04)
[2021-10-09] MEDS: amLODIPine 5 MG TABLET PO SCH (10:04)
[2021-10-09] MEDS: CLOPIDOGREL 75 MG TABLET PO SCH (10:04)
[2021-10-09] MEDS: BUDESONIDE/FORMOTEROL 160-4.5 INHALER 6 GM INH SCH (10:09)
[2021-10-09] MEDS ORDERED: FUROSEMIDE 40 MG TABLET PO SCH (11:00)
[2021-10-09] MEDS ORDERED: SPIRONOLACTONE 25 MG TABLET PO SCH (11:00)
[2021-10-09 11:41] VITALS: BP 101/65
== END 2021-10-09 12:50 | disposition home or self-care (01) | DRG 683 ==
LOC: N.EDINP 06:49 → N.ED 06:49 → SUATTDRO 10:34 → N.2W 11:43 → SUATTDRO 10-07 09:25 → N.5E 10-07 13:12
PROVIDERS: ADMIT Family Medicine; ATTEND Internal Medicine